=== PATIENT | male | born 1955 | race Caucasian/White ===

== ENCOUNTER → 2016-04-17 | Outpatient (CLI) | payer BC ==
[2014-06-23 11:00] VITALS: BP 139/86
[~2016-04-17] MED LIST: ASPI325T11 PO; CLOP75TA PO; FAMO20TA5 PO; FERR-26 PO; METO25TA4 PO; NAPR500T3 PO; REGADENOSON 0.4 MG/5 ML DISP.SYRIN. IV ONE; SIMV20TA3 PO
--- NOTE | 2016-04-17 09:41 | CARD ---
APPROVED REPORT EXAM: Two-dimensional and M-mode echocardiogram with Doppler and color Doppler. Other Information Quality : GoodHR: 50bpm Rhythm : Bradycardia INDICATION Atherosclerosis of coronary artery bypass graft(s) without angina pectoris RISK FACTORS Hypertension Family History 2D DIMENSIONS RVDd2.7 (2.9-3.5cm)Left Atrium(2D)3.1 (1.6-4.0cm) IVSd0.6 (0.7-1.1cm)Aortic Root(2D)3.0 (2.0-3.7cm) LVDd5.0 (3.9-5.9cm)LVOT Diameter2.2 (1.8-2.4cm) PWd0.7 (0.7-1.1cm)LVDs3.8 (2.5-4.0cm) FS (%) 24.9 %SV59.4 ml LVEF(%)49.1 (>50%) Aortic Valve AoV Peak Carter.123.9cm/sAoV VTI31.3cm AO Peak GR.6.1mmHgLVOT Peak Carter.109.7cm/s AO Mean GR.3mmHgAVA (VMAX)3.40cm2 Mitral Valve MV E Msjqedbj36.5cm/sMV E Peak Gr.154mmHg MV DECEL HFGE671wlUA A Iihtqgqp55.6cm/s MV E Mean Gr.1mmHgE/A Ratio1.9 MV A Susttgky877cy Pulmonary Valve PV Peak Pdagkjcu91.8cm/s Tricuspid Valve TR P. Nlhohtkf713vj/sRAP RLEZAYQJ7rhYl TR Peak Gr.33wyKqOHKD29oxVk Pulmonary Vein S1 Rkmnxdjj17.9cm/sD2 Gxvwovwd28.5cm/s PVa hrbtvhtq995elml LEFT VENTRICLE The left ventricle is normal size. There is normal left ventricular wall thickness. The left ventricu lar systolic function is normal and the ejection fraction is within normal range. EF 55% Septal motio n consistent with post-operative state. The left ventricular diastolic function and filling is normal for age. RIGHT VENTRICLE The right ventricle is normal size, wall thickness and systolic function. ATRIA The left atrium is mildly dilated. The right atrium size is normal. The interatrial septum is intact with no evidence for an atrial septal defect or patent foramen ovale as noted on 2-D or Doppler imagi ng. AORTIC VALVE The aortic valve is mildly sclerotic and not well visualized. Doppler and Color Flow revealed no sign ificant aortic regurgitation. There is no significant aortic valvular stenosis. MITRAL VALVE The mitral valve is normal in structure and function. There is no evidence of mitral valve prolapse. There is no mitral valve stenosis. Doppler and Color Flow revealed no mitral valve regurgitation note d. TRICUSPID VALVE Doppler and Color Flow revealed mild tricuspid regurgitation. The pulmonary artery systolic pressure is estimated at 33 mmHg. PULMONIC VALVE Doppler and Color Flow revealed no pulmonic valvular regurgitation. There is no pulmonic valvular yokasta nosis. GREAT VESSELS The aortic root and ascending aorta are normal in size. The IVC is normal in size and collapses >50% with inspiration. PERICARDIAL EFFUSION There is no evidence of significant pericardial effusion. Critical Notification Critical Value: No <Conclusion> The left ventricular systolic function is normal and the ejection fraction is within normal range. EF 55% No significant valvular disease.
--- NOTE | 2016-04-17 12:54 | RAD ---
APPROVED REPORT Test Type: Pharmacological Stress Nurse/Tech: JOSE R Swann RN Test Indications: CAD Cardiac History: CABG, HTN, see EHR Medications: see EHR Medical History: see EHR Resting ECG: SB Resting Heart Rate: 46 bpm Resting Blood Pressure: 130/69mmHg Pretest Chest Pain: No chest pain Nurse/Tech Notes Lungs CTA, heart tones WNL Consent: The procedure was explained to the patient in lay terms. Informed consent was witnessed. William eout was entered into [employer]. History and Stress Test performed by AICHA Mclain Pharm. Details Pharmacologic stress testing was performed using 0.4mg per 5ml of regadenoson given intravenously ove r 7-10 seconds. Stress Symptoms No chest pain or symptoms. POST EXERCISE Reason for Termination: Infusion complete Target HR: Yes Max HR: 87 bpm 63% of Maximum Predicted HR: 136 bpm Max Blood Pressure: 144/77mmHg Chest Pain: No. Arrhythmia: No. ST Change: No. INTERPRETATION Stress EKG Conclusion: No acute changes were noted. Imaging Protocol IMAGE PROTOCOL: Rest Tc-99m/stress Tc-99m 1 day Rest: Stress: Viability: Radiopharm.Tc99m LkcghlifyEf28c Sestamibi Jsdm48tBw 37.1mCi Duration 15min. 10min. Img Date 04/17/2016 04/17/2016 Inj-Img Edoi23zad. 60min. Rest Admin Site:IV - Left AntecubitalAdministrator:RT Abigail (R)(N) Stress Admin Site: IV - Left AntecubitalAdministrator: AICHA Mclain STRESS DATA End Diast. Vol.115.0mlAv. Heart Rate57.0bpm End Syst. Vol.31.0mlCO Index BSA0.0L/min Myocardial Jpky360.0gEject. Hsgtdorz33.0% Stress Rates Pk. Fill Rate2.33EDV/secLVtime Pk. Fill 286.24msec Pk. Empty Rate3.01ESV/secLVtime Pk. Epzdp724.15msec 03/20 Pk. Fill1.27EDV/sec Stress Scores Regional WT0.00Summed WT1.00 Regional WM0.00Summed WM15.00 LV Perfusion There is normal perfusion at stress. Rest images are limited in interpretation due to subdiaphragmati c attenuation artifact. Wall Motion Normal wall motion. LV Perf. Quant 17 Seg. SSS0.00 17 Seg. SRS12.00 17 Seg. SDS0.00 Stress Defect Extent (% LAD)0.00Rest Defect Extent (% LAD)11.90Rev. Defect Extent (% LAD)0.00 Stress Defect Extent (% LCX) 0.00Rest Defect Extent (% LCX)0.00Rev. Defect Extent (% LCX)0.00 Stress Defect Extent (% RCA)0.00Rest Defect Extent (% RCA)53.30Rev. Defect Extent (% RCA)0.00 Stress Defect Extent (% GARRETT)0.00Rest Defect Extent (% GARRETT)18.50Rev. Defect Extent (% GARRETT)0.00 Other Information Quality:Good Risk Assessment: Low Risk Conclusion 1. No evidence of stress-induced EKG changes. 2. Normal myocardial perfusion at stress. 3. Preserved LV systolic function with an ejection fraction greater than 70%. 4. Subdiaphragmatic artifact noted on rest images 5. Low risk study.
== END | disposition home or self-care (01) ==
LOC: ECHO 07:11
PROVIDERS: ATTEND Internal Medicine Cardiovascular Disease
DX: I25.810 Atherosclerosis of coronary artery bypass graft(s) without angina pectoris (principal); Z82.49 Family history of ischemic heart disease and other diseases of the circulatory system; I10 Essential (primary) hypertension; Z79.01 Long term (current) use of anticoagulants
CPT/HCPCS: 78452; 93017; 93306; 96374; 96375; 96376; A9500; J2785

== ENCOUNTER → 2017-04-03 | Outpatient (CLI) | payer BC | END | disposition home or self-care (01) | LOC: ECHO 07:34 | DX: I25.810 Atherosclerosis of coronary artery bypass graft(s) without angina pectoris (principal); I36.1 Nonrheumatic tricuspid (valve) insufficiency; I25.2 Old myocardial infarction | CPT/HCPCS: 93306 ==

== ENCOUNTER → 2017-10-10 | Outpatient (CLI) | payer BC | END | disposition home or self-care (01) | LOC: US 06:39 | DX: I73.89 Other specified peripheral vascular diseases (principal); T82.858A Stenosis of other vascular prosthetic devices, implants and grafts, initial encounter; I10 Essential (primary) hypertension; E11.9 Type 2 diabetes mellitus without complications; I25.10 Atherosclerotic heart disease of native coronary artery without angina pectoris; Z87.891 Personal history of nicotine dependence | CPT/HCPCS: 93925 ==

== ENCOUNTER → 2017-10-18 | Outpatient (CLI) | payer BC ==
[2017-10-18] MEDS: REGADENOSON 0.4 MG/5 ML DISP.SYRIN. IV (10:15)
== END | disposition home or self-care (01) ==
LOC: NM 09:22
DX: Z01.818 Encounter for other preprocedural examination (principal); I25.10 Atherosclerotic heart disease of native coronary artery without angina pectoris; I10 Essential (primary) hypertension; E11.9 Type 2 diabetes mellitus without complications; E78.5 Hyperlipidemia, unspecified; I25.2 Old myocardial infarction; Z95.1 Presence of aortocoronary bypass graft; Z79.01 Long term (current) use of anticoagulants; Z87.891 Personal history of nicotine dependence
CPT/HCPCS: 78452; 93017; 96374; 96375; 96376; A9500; J2785

== ENCOUNTER 2018-01-13 06:39 | Outpatient (CLI) | payer BC ==
[~2018-01-13] VITALS: Ht 175.3 cm; Wt 65.8 kg
[2018-01-13] VITALS (14 sets, daily range): BP systolic 115–167; BP diastolic 64–93
[~2018-01-13 06:39] MED LIST changes: -FERR-26 PO; +FERR325T14 PO; +NAPR-514 PO; -NAPR500T3 PO; -REGADENOSON 0.4 MG/5 ML DISP.SYRIN. IV ONE
[2018-01-13] MEDS ORDERED: LIDOCAINE 1% Multi-Dose 50 ML VIAL. ONE (07:06)
[2018-01-13] MEDS ORDERED: IODIXANOL 320 MG/ML 100 ML VIAL. ONE (07:06)
[2018-01-13 07:13] LABS: HEMATOCRIT 45.8 % (39.0-53.0); RED BLOOD COUNT 4.88 x10^6/uL (4.30-5.70); RED CELL DISTRIBUTION WIDTH 13.2 % (11.5-14.5); WHITE BLOOD COUNT 7.2 x10^3/uL (4.0-11.0)
[2018-01-13 07:23] LABS: CALCIUM 9.1 mg/dL (8.5-10.1); CREATININE 0.8 mg/dL (0.7-1.3); GFR 98.3; POTASSIUM 4.2 mmol/L (3.5-5.1)
[2018-01-13 07:24] LABS: PROTHROMBIN TIME PATIENT 12.7 SEC (11.7-14.0)
[2018-01-13] MEDS ORDERED: MIDAZOLAM HCL/PF 2 MG/2 ML VIAL. ONE (08:08)
[2018-01-13] MEDS ORDERED: fentaNYL PF VIAL 100 MCG/2 ML VIAL ONE (08:08)
[2018-01-13] MEDS ORDERED: HEPARIN for IV BOLUS 10,000 UNIT/10 ML VIAL. ONE (08:32)
[2018-01-13] MEDS ORDERED: diphenhydrAMINE 50 MG/ML VIAL ONE (08:33)
[2018-01-13] MEDS ORDERED: hydrALAZINE 20 MG/ML VIAL. ONE (08:56)
[2018-01-13] MEDS ORDERED: MIDAZOLAM HCL/PF 2 MG/2 ML VIAL. IV ONE ×2 (09:15→10:00)
[2018-01-13] MEDS ORDERED: NITROGLYCERIN 200 MCG/2 ML SYRINGE FOR CATH/VASC LAB. IART ONE (09:15)
[2018-01-13] MEDS ORDERED: HEPARIN for IV BOLUS 10,000 UNIT/10 ML VIAL. IV ONE (09:15)
[2018-01-13] MEDS ORDERED: IODIXANOL 320 MG/ML 100 ML VIAL. IART ONE (09:15)
[2018-01-13] MEDS ORDERED: LIDOCAINE 1% Multi-Dose 50 ML VIAL. INJ ONE (09:15)
[2018-01-13] MEDS ORDERED: hydrALAZINE 20 MG/ML VIAL. IVP ONE (09:15)
[2018-01-13] MEDS ORDERED: fentaNYL PF VIAL 100 MCG/2 ML VIAL IV ONE ×2 (09:15→10:00)
[2018-01-13] MEDS ORDERED: diphenhydrAMINE 50 MG/ML VIAL IVP ONE (09:15)
--- NOTE | 2018-01-13 09:49 | CARD ---
MR#: [id number] Date of Study: 01/13/2018 Ordering Physician: YANNA LOOMIS, Referring Physician: YANNA LOOMIS Tech: RT Silas (R) APPROVED REPORT Patient StatusOUT-PATIENT Entertainer Or Variety Artist: RT Silas (R) Procedure(s) performed: 1. Aortogram with bilateral lower extremity runoff 2. Successful drug-coated balloon angioplasty to in-stent restenosis involving the left superficial femoral artery Moderate sedation: 64 minutes INDICATION FOR PROCEDURE The indication(s) include : Peripheral artery disease with claudication. PROCEDURE NARRATIVE After explaining the risks, benefits and alternative options, informed consent was obtained from emperatriz ent. Patient was brought to the cardiac Cry[facility] Recovery Operator and his right groin was prepped and draped in the us ual fashion. 20 mL of 2% lidocaine was infiltrated into the skin and subcutaneous tissues for local a nesthesia. Arterial access was obtained in the right common femoral artery and 5 Indonesian sheath was in serted. 5 Indonesian pigtail catheter was used to perform aortogram with bilateral lower extremity runoff . The following findings were noted. FINDINGS 1. No significant stenosis involving the distal descending aorta. 2. Widely patent previously placed stents in the right common and external iliac arteries. The left common iliac artery did not show any significant stenosis. The previously placed stent in the left ex ternal iliac artery was widely patent. 3. No significant stenosis involving bilateral common femoral arteries. 4. The right superficial femoral artery showed 40% stenosis in the distal segment. The left superfic ial femoral artery showed 90% in-stent restenosis in the proximal segment, 60-70% in-stent restenosis in the mid and distal segments. 5. No significant stenosis involving bilateral popliteal arteries. There is three vessel runoff both lower extremities. INTERVENTION The sheath in the right groin was exchanged to a 6 Indonesian 45 cm destination sheath that was advanced over the aortic juanjo with the help of a crossover catheter and the tip was positioned in the left c ommon femoral artery. The stenoses within the stent in the left superficial femoral artery were cross ed with a 0.018 inch command XT guidewire. The in-stent restenosis were dilated initially with 5.5 x 1 50 mm Banks Hobgood balloon. The proximal in-stent restenosis was then treated with a 6.0 x 1 20 mm Klappo Limitedtronic Inpact drug-coated balloon. Follow-up angiography showed resolution of the stenoses to 0% with good distal flow. Patient tolerated the procedure well. Hemostasis in the right groin was achiev ed using Perclose suture closure device. There were no immediate complications. Conclusion 1. Patent previously placed stents in the right common iliac, external iliac and left external iliac arteries. 2. Significant in-stent restenosis involving the proximal, mid and distal segments of the left super ficial femoral artery. 3. Successful drug-coated balloon angioplasty to the left superficial femoral artery. Recommendations Vascular risk factor modification and regular exercise regimen Signed by : Yanna Loomis, Electronically Approved : 01/13/2018 09:49:13
[2018-01-13] MEDS ORDERED: IV 1/2 NORMAL SALINE 1,000 ML IV SCH (09:54)
--- NOTE | 2018-01-13 09:54 | PDOC ---
MODERATE SEDATION ASSESSMENT RISKS/ALTERNATIVES Risks/Alternatives Risks and alternatives of this type of sedation and procedure discussed with: RISK/ALTERNATIVES: Patient H & P ON CHART H & P H & P on chart and reviewed for co-morbid conditions and appropriate labs. H&P ON CHART: Yes STATUS PREG STATUS ASSESSED: N/A MEDS/ALLERGIES REVIEWED Meds/Allergies Reviewed Medications and Allergies including time and route of recently administered narcotics and sedatives. MEDS/ALLERGIES REVIEWED: Yes ASA RATING ASA RATING: III AIRWAY ASSESSMENT Airway Assessment Airway patency, oral function limitations, presence of caps, crowns, dentures, partials, and ability to extend neck assessed. AIRWAY ASSESSMENT: Yes MALLAMPATI SCORE MALLAMPATI SCORE: II PRE-SEDATION ASSESSMENT PRE-SEDATION ASSESSMENT: Yes YANNA MIRANDA MD Jan 13, 2018 09:54
[2018-01-13] MEDS ORDERED: ACETAMINOPHEN 325 MG TABLET. PO PRN (10:00)
[2018-01-13] MEDS ORDERED: NITROGLYCERIN SUBLINGUAL 0.4 MG BOTTLE OF 25. SL PRN (10:00)
[2018-01-13] MEDS ORDERED: MAGNESIUM HYDROXIDE 2,400 MG/30 ML ORAL.SUSP. PO PRN (10:00)
== END 2018-01-13 13:00 | disposition home or self-care (01) ==
LOC: CCL 06:39
PROVIDERS: ATTEND Internal Medicine Cardiovascular Disease
DX: I70.213 Atherosclerosis of native arteries of extremities with intermittent claudication, bilateral legs (principal)
CPT/HCPCS: 36415; 37224; 80048; 85027; 85610; 99152; 99153; C1769; C1885; C1892; C2623; J0360; J1200; J1644; J2250; J3010; J3490; Q9967; 75630; C1771; G0269

== ENCOUNTER → 2018-08-05 | Outpatient (CLI) | payer BC ==
[2018-01-13 12:59] VITALS: BP 137/64
--- NOTE | 2018-08-05 09:56 | CARD ---
MR#: [id number] Date of Study: 08/05/2018 Ordering Physician: YANNA MIRANDA, Referring Physician: YANNA MIRANDA Tech: Dorothy Geller RDCS APPROVED REPORT EXAM: Two-dimensional and M-mode echocardiogram with Doppler and color Doppler. Other Information Quality : Good INDICATION Cardiac Disease: CAD Surgery/Intervention CABG: Date: 2012 2D DIMENSIONS Left Atrium(2D)3.0 (1.6-4.0cm)IVSd0.8 (0.7-1.1cm) Aortic Root(2D)2.6 (2.0-3.7cm)LVDd4.5 (3.9-5.9cm) LVOT Diameter2.0 (1.8-2.4cm)PWd0.8 (0.7-1.1cm) LVDs3.4 (2.5-4.0cm)FS (%) 24.0 % SV44.7 mlLVEF(%)48.0 (>50%) Aortic Valve AoV Peak Carter.126.6cm/sAoV VTI28.2cm AO Peak GR.6.4mmHgLVOT Peak Carter.115.1cm/s AO Mean GR.3mmHgAVA (VMAX)2.78cm2 MARY GRACE (VTI)2.70cm2 Mitral Valve MV E Bkzajigo61.2cm/sMV DECEL VNWO370fq MV A Zefduppp54.6cm/sE/A Ratio1.5 Tricuspid Valve TR P. Nvwixvje233tn/sRAP NWJOXRXH2aqLe TR Peak Gr.17rmEtZJNX74hkRv Pulmonary Vein S1 Pcliabcq43.9cm/sD2 Dukdalhb52.5cm/s LEFT VENTRICLE The left ventricle is normal size. There is normal left ventricular wall thickness. Left ventricle sy stolic function is normal. The Ejection Fraction is 50-55%. Septal motion consistent with post-operat jing state. RIGHT VENTRICLE The right ventricle is normal size. The right ventricular systolic function is normal. ATRIA The left atrium size is normal. The right atrium size is normal. The interatrial septum is intact wit h no evidence for an atrial septal defect or patent foramen ovale as noted on 2-D or Doppler imaging. AORTIC VALVE The aortic valve is mildly thickened but opens well. Doppler and Color Flow revealed no significant a ortic regurgitation. There is no significant aortic valvular stenosis. MITRAL VALVE The mitral valve is calcified but opens well. There is no evidence of mitral valve prolapse. There is no mitral valve stenosis. Doppler and Color-flow revealed mild mitral regurgitation. TRICUSPID VALVE The tricuspid valve is normal in structure and function. Doppler and Color Flow revealed trace to mil d tricuspid regurgitation. There is mild pulmonary hypertension. The PA pressure was estimated at 32 mmHg. There is no tricuspid valve stenosis. PULMONIC VALVE The pulmonic valve is not well visualized. Doppler and Color Flow revealed no pulmonic valvular regur gitation. There is no pulmonic valvular stenosis. GREAT VESSELS The aortic root is normal in size. The ascending aorta is not well seen. The IVC is normal in size an d collapses >50% with inspiration. PERICARDIAL EFFUSION There is no evidence of significant pericardial effusion. Critical Notification Critical Value: No <Conclusion> Left ventricle systolic function is normal. The Ejection Fraction is 50-55%. Mild mitral regurgitation. Trace to mild tricuspid regurgitation. The PA pressure was estimated at 32 mmHg. There is no evidence of significant pericardial effusion. Signed by : Yanna Miranda, Electronically Approved : 08/05/2018 09:55:45
== END | disposition home or self-care (01) ==
LOC: ECHO 07:59
PROVIDERS: ATTEND Internal Medicine Cardiovascular Disease
DX: I08.1 Rheumatic disorders of both mitral and tricuspid valves (principal); I27.20 Pulmonary hypertension, unspecified; I25.810 Atherosclerosis of coronary artery bypass graft(s) without angina pectoris
CPT/HCPCS: 93306

== ENCOUNTER → 2019-01-26 | Outpatient (CLI) | payer BC ==
[2018-01-13 12:59] VITALS: BP 137/64
[~2019-01-26] MED LIST changes: +SIMV20TA18 PO; -SIMV20TA3 PO
--- NOTE | 2019-01-26 12:57 | RAD ---
MR#: [id number] Date of Study: 01/26/2019 Ordering Physician: YANNA MIRANDA, Referring Physician: BRYON BRO Tech: OK Culp ARRT (Sharon) (N) APPROVED REPORT Test Type: Exercise Stress Nurse/Tech: Kathy Carter RN Test Indications: CAD Cardiac History: Family history,CABG x4 in 2012, Hypertension,former smoker Medications: See Electronic Medical Record Medical History: See Electronic Medical Record Resting ECG: SB Resting Heart Rate: 51 bpm Resting Blood Pressure: 152/80mmHg Pretest Chest Pain: No chest pain Nurse/Tech Notes S1,S2 and lungs clear to auscultation. Consent: The procedure was explained to the patient in lay terms. Informed consent was witnessed. William eout was entered into [employer]. History and Stress Test performed by OK Culp ARRT (R) (N) Stress Symptoms Fatigue POST EXERCISE Reason for Termination: Reached target heart rate, Fatigue Target HR: Yes Max HR: 188 bpm 140% of Maximum Predicted HR: 134 bpm Exercise duration: 9:20 min:sec, 3 Stage Exercise capacity: 10METs Max Blood Pressure: 188/79mmHg Blood Pressure response to exercise: Normal blood pressure response during stress. Heart Rate response to exercise: WNL Chest Pain: No. Arrhythmia: No. INTERPRETATION Stress EKG Conclusion: The resting EKG shows a sinus rhythm with mild nonspecific ST segment changes. The stress EKG shows mild further ST segment changes that are not diagnostic for ischemia. No EKG evidence of stress-induced ischemia. Imaging Protocol IMAGE PROTOCOL: Rest Tc-99m/stress Tc-99m 1 day Rest: Stress: Viability: Radiopharm.Tc99m DnfkautmeMl43g Sestamibi Kykv50mZd 33mCi Img Date 01/26/2019 01/26/2019 Inj-Img Utpx64hfw. 60min. Rest Admin Site:IV - Right AntecubitalAdministrator:OK Culp ARRT (Sharon)(N) Stress Admin Site: IV - Right AntecubitalAdministrator: Edwardo Kessler, RT (R)(N) STRESS DATA End Diast. Vol.98.0mlLVEDV index BSA54.0ml End Syst. Vol.30.0mlLVESV index BSA17.0ml Myocardial Pmsh580.0gEject. Kypspnsp61.0% Stress Scores Regional WT1.00Summed WT8.00 Regional WM0.00Summed WM14.00 LV Perfusion The stress scans showed no significant defects. The rest scans showed no significant defects. Nuclear imaging shows no reversible ischemia or infarct. Wall Motion Left ventricular systolic function is normal with no regional wall motion abnormalities and an ejecti on fraction of 70%. LV Perf. Quant 17 Seg. SSS1.00 17 Seg. SRS6.00 17 Seg. SDS0.00 Stress Defect Extent (% LAD)0.00Rest Defect Extent (% LAD)5.00Rev. Defect Extent (% LAD)0.00 Stress Defect Extent (% LCX) 0.00Rest Defect Extent (% LCX)7.50Rev. Defect Extent (% LCX)0.00 Stress Defect Extent (% RCA)0.00Rest Defect Extent (% RCA)0.00Rev. Defect Extent (% RCA)0.00 Stress Defect Extent (% GARRETT)0.00Rest Defect Extent (% GARRETT)8.50Rev. Defect Extent (% GARRETT)0.00 Conclusion 1. No EKG evidence of stressed induced ischemia. 2. Nuclear imaging shows no reversible ischemia or infarct. 3. Normal left ventricular systolic function with an ejection fraction of 70%. 4. Low risk Lexiscan nuclear stress test. Signed by : Reginald Saha MD Electronically Approved : 01/26/2019 12:56:53
--- NOTE | 2019-01-26 13:59 | RAD ---
MR#: [id number] Date of Study: 01/26/2019 Ordering Physician: YANNA MIRANDA, Referring Physician: YANNA MIRANDA, Tech: Neil Maldonado MBA, RDMS, RVT, RDCS, RTR APPROVED REPORT Patient Location: OUT-PATIENT Indications PAD VELOCITY AND DOPPLER WAVEFORM ANALYSIS RIGHT cm/secWaveformSeverity LEFT cm/secWaveform Severity dCFA 124.0TriphasicdCFA 93.0Triphasic Prof Fem Art. 43.0BiphasicProf Fem Art. 59.0Biphasic Fem Art Prox. 76.0TriphasicFem Art Prox. 122.0Triphasic Fem Art Mid. 87.0TriphasicFem Art Mid. 95.0Triphasic Fem Art Dist. 119.0TriphasicFem Art Dist. 187.0Biphasic Pop Art(Fossa) 67.0TriphasicPop Art(AK) 54.0Biphasic BROOM BUILDER Prox. 58.0BiphasicPTA Prox. 47.0Biphasic BROOM BUILDER Dist. 34.0BiphasicPTA Dist. 38.0Biphasic Per Art Mid. 33.0BiphasicPer Art Mid. 31.0Biphasic CARL Prox. 46.0BiphasicATA Prox. 58.0Biphasic DPA 40BiphasicDPA 64Biphasic Findings Grayscale images of the bilateral lower extremity arterial vessels reveals moderate diffuse plaque. On the right side the spectral waveforms are mostly triphasic and biphasic with three-vessel runoff b elow the knee. There is likely moderate diffuse disease involving the peroneal and posterior tibial a rteries without any focal high-grade lesions noted. On the left there is a patent superficial femoral artery stent with likely less than 50% stenosis at the distal stent edge. There are again mostly triphasic waveforms and biphasic waveforms below the kn ee. There is again three-vessel runoff without any focal evidence of obstructive disease. Critical Notification Critical Value: No <Conclusion> 1. Patent left SFA stent without any significant restenosis 2. Three-vessel runoff below the knee without any critical disease noted. Signed by : Pedrito Gómez, Electronically Approved : 01/26/2019 13:59:02
== END | disposition home or self-care (01) ==
LOC: NM 07:57
PROVIDERS: ATTEND Internal Medicine Cardiovascular Disease
DX: I25.810 Atherosclerosis of coronary artery bypass graft(s) without angina pectoris (principal); I70.203 Unspecified atherosclerosis of native arteries of extremities, bilateral legs; I10 Essential (primary) hypertension; Z95.1 Presence of aortocoronary bypass graft; Z87.891 Personal history of nicotine dependence
CPT/HCPCS: 78452; 93017; 93925; A9500

== ENCOUNTER → 2020-02-01 | Outpatient (CLI) | payer BC ==
[2018-01-13 12:59] VITALS: BP 137/64
--- NOTE | 2020-02-01 13:35 | RAD ---
MR#: [id number] Date of Study: 02/01/2020 Ordering Physician: YANNA MIRANDA, Referring Physician: BRYON BRO Tech: AICHA Mclain APPROVED REPORT Test Type: Exercise Stress Nurse/Tech: Janet Snow R.N. Test Indications: CAD Cardiac History: Family history, Hypertension, /CABG 2012 Medications: See Electronic Medical Record Medical History: See Electronic Medical Record Resting ECG: NSR Resting Heart Rate: 64 bpm Resting Blood Pressure: 133/72mmHg Pretest Chest Pain: No chest pain Nurse/Tech Notes S1S2, lungs sound clear Consent: The procedure was explained to the patient in lay terms. Informed consent was witnessed. William eout was entered into [employer]. History and Stress Test performed by Janet Snow R.N. Stress Symptoms No chest pain or symptoms. POST EXERCISE Reason for Termination: Reached target heart rate Target HR: 133 Max HR: 145 bpm % of Maximum Predicted HR: 4 bpm Exercise duration: 11 min. min:sec, Stage Max Blood Pressure: 167/69mmHg Blood Pressure response to exercise: Normal blood pressure response during stress. Chest Pain: No. Arrhythmia: No. ST Change: No. INTERPRETATION Stress EKG Conclusion: Baseline EKG showed sinus rhythm. No ischemic changes at peak stress. No arr hythmias. Imaging Protocol IMAGE PROTOCOL: Rest Tc-99m/stress Tc-99m 1 day Rest: Stress: Viability: Radiopharm.Tc99m UdfojpsbsRn19y Sestamibi Cpve02oNm 33mCi Duration 15min. 13min. Img Date 02/01/2020 02/01/2020 Inj-Img Unjx41xqp. 60min. Post-Injection Exercise: 1 minute Rest Admin Site:IV - Right WristAdministrator:AICHA Mclain Stress Admin Site: IV - Right WristAdministrator: OK Culp, ARRT (R)(N) STRESS DATA End Diast. Vol.94.0mlAv. Heart Rate64.0bpm LVEDV index BSA52.0mlCardiac Output0.0L/min End Syst. Vol.35.0mlCO Index BSA0.0L/min LVESV index BSA19.0mlMyocardial Chdf337.0g Eject. Juzouwdv95.0% Stress Scores Regional WT0.00Summed WT2.00 Regional WM0.00Summed WM10.00 Study quality was good. Left Ventricular size was Normal at Rest and Stress. Lung uptake was . Left Ventricular ejection fraction is 63%. The rest and stress images show normal perfusion, normal contraction and thickening. LV Perf. Quant 17 Seg. SSS2.00 17 Seg. SRS3.00 17 Seg. SDS1.00 Stress Defect Extent (% LAD)0.00Rest Defect Extent (% LAD)0.00Rev. Defect Extent (% LAD)0.00 Stress Defect Extent (% LCX) 0.00Rest Defect Extent (% LCX)0.00Rev. Defect Extent (% LCX)0.00 Stress Defect Extent (% RCA)0.00Rest Defect Extent (% RCA)0.00Rev. Defect Extent (% RCA)0.00 Stress Defect Extent (% GARRETT)0.90Rest Defect Extent (% GARRETT)0.00Rev. Defect Extent (% GARRETT)0.00 Conclusion 1. Treadmill exercise cardioisotope stress test did not show any evidence of ischemia or infarct. 2. Normal left ventricular systolic function with ejection fraction calculated at 63%. 3. Patient had excellent activity tolerance. Low risk for cardiac events. Signed by : Yanna Miranda, Electronically Approved : 02/01/2020 13:35:09
--- NOTE | 2020-02-01 13:40 | CARD ---
MR#: [id number] Date of Study: 02/01/2020 Ordering Physician: YANNA MIRANDA, Referring Physician: YANNA MIRANDA, Tech: Melly Gilesjavi APPROVED REPORT EXAM: Two-dimensional and M-mode echocardiogram with Doppler and color Doppler. Other Information Quality : AverageHR: 56bpm INDICATION Athersclorosis Surgery/Intervention CABG: Date: 2012 RISK FACTORS Hypertension Hyperlipidemia 2D DIMENSIONS RVDd3.3 (2.9-3.5cm)Left Atrium(2D)2.2 (1.6-4.0cm) IVSd0.9 (0.7-1.1cm)Aortic Root(2D)2.8 (2.0-3.7cm) LVDd4.9 (3.9-5.9cm)LVOT Diameter2.0 (1.8-2.4cm) PWd1.0 (0.7-1.1cm)LVDs3.4 (2.5-4.0cm) FS (%) 31.9 %SV68.7 ml LVEF(%)59.7 (>50%) Aortic Valve AoV Peak Carter.115.9cm/sAoV VTI24.7cm AO Peak GR.5.4mmHgLVOT Peak Carter.91.6cm/s LVOT VTI 19.77cmAO Mean GR.3mmHg MARY GRACE (VMAX)2.52uz9OCH (VTI)2.60cm2 Mitral Valve MV E Yfnnhiak52.3cm/sMV E Peak Gr.86mmHg MV DECEL XNMV522azJE A Swfmwhqn70.0cm/s MV CBI65qoI/A Ratio1.0 MVA (PHT)3.44cm2 TDI E/Lateral E'5.9E/Medial E'7.8 Pulmonary Valve PV Peak Bsvvwmmm884.1cm/sPV Peak Grad.4mmHg Tricuspid Valve TR P. Iiyicwzm615mm/sRAP KLWYAMPV2efJf TR Peak Gr.42wtUaNCWH91gmEd Pulmonary Vein S1 Mndpmpwp90.1cm/sD2 Lhphdooh49.5cm/s PVa eussxbzj666kwyq LEFT VENTRICLE The left ventricle is normal size. There is normal left ventricular wall thickness. The left ventricu lar systolic function is normal. The Ejection Fraction is 50-55%. There is normal LV segmental wall m otion. RIGHT VENTRICLE The right ventricle is normal size. There is normal right ventricular wall thickness. The right ventr icular systolic function is normal. ATRIA The left atrium size is normal. The right atrium size is normal. The interatrial septum is intact wit h no evidence for an atrial septal defect or patent foramen ovale as noted on 2-D or Doppler imaging. AORTIC VALVE The aortic valve is thickened but opens well. Doppler and Color Flow revealed trace aortic regurgitat ion. There is no significant aortic valvular stenosis. Calculated aortic valve area is 2.64 cm2 with maximum pressure gradient of 7 mmHg and mean pressure gradient of 3 mmHg. MITRAL VALVE The mitral valve is normal in structure and function. There is no evidence of mitral valve prolapse. There is no mitral valve stenosis. Doppler and Color-flow revealed trace to mild mitral regurgitation . TRICUSPID VALVE The tricuspid valve is normal in structure and function. Doppler and Color Flow revealed trace tricus pid regurgitation with an estimated PAP of 28 mmHg. There is no tricuspid valve stenosis. PULMONIC VALVE The pulmonic valve is not well visualized. Doppler and Color Flow revealed no pulmonic valvular regur gitation. GREAT VESSELS The aortic root is normal in size. The IVC is normal in size and collapses >50% with inspiration. PERICARDIAL EFFUSION There is no evidence of significant pericardial effusion. Critical Notification Critical Value: No <Conclusion> The left ventricular systolic function is normal. The Ejection Fraction is 50-55%. There is normal LV segmental wall motion. Trace to mild mitral regurgitation. Trace tricuspid regurgitation with an estimated PAP of 28 mmHg. There is no evidence of significant pericardial effusion. Signed by : Yanna Miranda, Electronically Approved : 02/01/2020 13:39:36
--- NOTE | 2020-02-01 18:08 | RAD ---
MR#: [id number] Date of Study: 02/01/2020 Ordering Physician: YANNA MIRANDA, Referring Physician: YANNA MIRANDA, Tech: APPROVED REPORT Patient Location: OUT-PATIENT Laterality:Bilateral Risk Factors Hypertension: Hyperlipidemia PAD Smoking Doppler Spectral Velocity Analysis Right Left pCCA 91/17 cm/spCCA 83/18 cm/s mCCA 89/19 cm/smCCA 159/40 cm/s dCCA 76/20 cm/sdCCA 144/32 cm/s ECA 70/ cm/sECA 117/ cm/s pICA 86/34 cm/spICA 116/27 cm/s Luna 107/43 cm/smICA 119/27 cm/s dICA 98/30 cm/sdICA 79/29 cm/s ICA/CCA 1.18ICA/CCA 1.43 Findings Grayscale images of the right carotid vasculature demonstrates mild diffuse intimal hyperplasia with a mild to moderate plaque at the level of the carotid bifurcation. Overall 0 to less than 50% stenos is based on velocity criteria. Normal ICA to CCA ratio. On the left side there is again mild intimal hyperplasia and soft plaque at the level of the common c arotid artery with peak systolic velocity elevation suggestive of moderate stenosis although on jeanie jigna images there does not appear to be any critical stenosis. There is however heavy calcific plaqu e at the level of the proximal internal carotid artery and by velocity criteria there is 0 to less th an 50% stenosis. Normal ICA to CCA ratio. Bilateral vertebral velocities are antegrade. Critical Notification Critical Value: No <Conclusion> 1. No significant right-sided carotid disease 2. Heavy calcific plaque with elevated peak systolic velocities within the left carotid system. 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 Signed by : Pedrito Gómez, Electronically Approved : 02/01/2020 18:07:21
== END ==
LOC: NM 11:03
PROVIDERS: ATTEND Internal Medicine Cardiovascular Disease
DX: I34.0 Nonrheumatic mitral (valve) insufficiency (principal); I65.22 Occlusion and stenosis of left carotid artery; I25.810 Atherosclerosis of coronary artery bypass graft(s) without angina pectoris; I73.9 Peripheral vascular disease, unspecified
CPT/HCPCS: 78452; 93017; 93306; 93880; A9500

== ENCOUNTER → 2020-08-17 | Outpatient (CLI) | payer BC ==
[2018-01-13 12:59] VITALS: BP 137/64
--- NOTE | 2020-08-17 12:50 | RAD ---
Bilateral lower extremity arterial duplex ultrasound study without comparison for peripheral vascular disease. TECHNIQUE AND FINDINGS: Real-time grayscale and color and spectral Doppler evaluation of the arteries of lower extremities is performed. There is multifocal calcified atherosclerosis. There is patency o f all vessels on the right with biphasic flow in all distributions and no focal velocity elevations t o suggest focal hemodynamically significant stenosis. There is some blunting of the waveform within t he common femoral artery on the right however, which may be spurious but could signify common femoral or iliac artery atherosclerosis which could be better interrogated with CTA if clinically warranted. On the left, there is a focal calcified atherosclerosis in the left common femoral artery resulting in roughly 50 percent diameter reduction of the vessel. Flow is triphasic with normal rapid upstroke. The remaining vessels on the lateral widely patent demonstrating normal. Biphasic morphologies with no focal velocity elevations indicative of focal hemodynamically significant stenosis. IMPRESSION: 1. No definite sonographically discernible hemodynamically significant arterial stenoses, however the re is abnormally waveform morphology within the right common femoral artery, which could be due to he modynamically significant proximal common femoral artery or iliac artery atherosclerosis. If clinical ly warranted, this could be better interrogated with CTA of the abdomen and pelvis. Electronically signed by: Lanre Carmona MD (08/17/2020 12:47 PM) [id number]
== END ==
LOC: US 10:41
PROVIDERS: ATTEND Internal Medicine Cardiovascular Disease
DX: I73.9 Peripheral vascular disease, unspecified (principal)
CPT/HCPCS: 93925

== ENCOUNTER → 2021-02-06 | Outpatient (CLI) | payer BC ==
[2018-01-13 12:59] VITALS: BP 137/64
--- NOTE | 2021-02-06 14:03 | CARD ---
MR#: [id number] Date of Study: 02/06/2021 Ordering Physician: YANNA MIRANDA, Referring Physician: YANNA MIRANDA, Tech: Sarah Felton [facility] APPROVED REPORT EXAM: Two-dimensional and M-mode echocardiogram with Doppler and color Doppler. Other Information Quality : GoodHR: 59bpm Rhythm : NSR INDICATION Cardiac Disease: CAD RISK FACTORS Hypertension Obesity Hyperlipidemia 2D DIMENSIONS RVDd3.3 (2.9-3.5cm)Left Atrium(2D)3.6 (1.6-4.0cm) IVSd0.9 (0.7-1.1cm)Aortic Root(2D)3.4 (2.0-3.7cm) LVDd4.7 (3.9-5.9cm)LVOT Diameter2.2 (1.8-2.4cm) PWd1.0 (0.7-1.1cm)LVDs2.8 (2.5-4.0cm) FS (%) 39.9 %SV71.5 ml LVEF(%)70.5 (>50%) Aortic Valve AoV Peak Carter.126.4cm/sAoV VTI28.1cm AO Peak GR.6.4mmHgLVOT Peak Carter.101.3cm/s AO Mean GR.3mmHgAVA (VMAX)3.14cm2 Mitral Valve MV E Ecqnjfrr68.8cm/sMV DECEL [id number] MV A Cuwylsms40.3cm/sE/A Ratio0.6 Pulmonary Valve PV Peak Vbcrcide559.8cm/s Tricuspid Valve TR P. Abklqniw569tz/sTR Peak Gr.31mmHg LEFT VENTRICLE The left ventricle is normal size. There is normal left ventricular wall thickness. The left ventricu lar systolic function is normal. Estimated ejection fraction 50-55%. There is normal LV segmental wal l motion. Transmitral Doppler flow pattern is Grade I-abnormal relaxation pattern. RIGHT VENTRICLE The right ventricle is normal size. There is normal right ventricular wall thickness. The right ventr icular systolic function is normal. ATRIA The left atrium size is normal. The right atrium size is normal. The interatrial septum is intact wit h no evidence for an atrial septal defect or patent foramen ovale as noted on 2-D or Doppler imaging. AORTIC VALVE The aortic valve is normal in structure and function. Doppler and Color Flow revealed no significant aortic regurgitation. There is no significant aortic valvular stenosis. MITRAL VALVE The mitral valve is normal in structure and function. There is no evidence of mitral valve prolapse. There is no mitral valve stenosis. Doppler and Color-flow revealed mild mitral regurgitation. TRICUSPID VALVE The tricuspid valve is normal in structure and function. Doppler and Color Flow revealed mild tricusp id regurgitation. Estimated PAP 35 mmHg. There is no tricuspid valve stenosis. PULMONIC VALVE The pulmonary valve is normal in structure and function. Doppler and Color Flow revealed trace pulmon ic valvular regurgitation. GREAT VESSELS The aortic root is normal in size. The ascending aorta is normal in size. The IVC is normal in size a nd collapses >50% with inspiration. PERICARDIAL EFFUSION There is no evidence of significant pericardial effusion. Critical Notification Critical Value: No <Conclusion> The left ventricular systolic function is normal. Estimated ejection fraction 50-55%. There is normal LV segmental wall motion. Transmitral Doppler flow pattern is Grade I-abnormal relaxation pattern. Mild mitral regurgitation. Mild tricuspid regurgitation. Estimated PAP 35 mmHg. There is no evidence of significant pericardial effusion. Signed by : Yanna Miranda, Electronically Approved : 02/06/2021 14:03:10
== END ==
LOC: ECHO 08:10
PROVIDERS: ATTEND Internal Medicine Cardiovascular Disease
DX: I08.1 Rheumatic disorders of both mitral and tricuspid valves (principal); I25.810 Atherosclerosis of coronary artery bypass graft(s) without angina pectoris; I10 Essential (primary) hypertension; E78.5 Hyperlipidemia, unspecified; E66.9 Obesity, unspecified
CPT/HCPCS: 93306